=== PATIENT | female | born 1965 | race Hispanic/Latino ===

== ENCOUNTER 2018-02-03 14:35 | Outpatient (CLI) | payer BC | END 2018-02-03 14:36 | disposition home or self-care (01) | LOC: BICMAMMO 14:35 | PROVIDERS: ATTEND Nurse Practitioner Family | DX: Z12.31 Encounter for screening mammogram for malignant neoplasm of breast (principal) | CPT/HCPCS: 77063; 77067 ==

== ENCOUNTER 2018-09-18 15:48 | Outpatient (CLI) | payer BC ==
--- NOTE | 2018-09-18 16:46 | RAD ---
THORACIC SPINE 3 VIEWS: Date: 09/18/18 HISTORY: Back pain. FINDINGS: There are 12 thoracic-type vertebrae. Pedicles are intact. Vertebral body height and AP alignment are maintained. Very mild S-shaped curvature on the frontal view. Mild osteophytosis throughout the vert ebral bodies and facets. IMPRESSION: Very mild degenerative changes are apparent. No evidence of compression fracture. POS: [facility]
== END 2018-09-18 15:49 | disposition home or self-care (01) ==
LOC: BICRAD 15:48
PROVIDERS: ATTEND Nurse Practitioner Family
DX: M54.6 Pain in thoracic spine (principal); M47.814 Spondylosis without myelopathy or radiculopathy, thoracic region
CPT/HCPCS: 72072

== ENCOUNTER 2018-12-13 15:20 | Outpatient (CLI) | payer BC ==
--- NOTE | 2018-12-13 15:41 | ULT ---
LEFT CHEST WALL ULTRASOUND: HISTORY: Left chest wall mass just beneath the clavicle. TECHNIQUE: Multiplanar, son scale, and color Doppler images were obtained in a left chest wall ultrasound. Paige ges of the right were obtained for comparison. TECHNIQUE: Multiplanar, son scale and color Doppler images were obtained in a left chest wall ultrasound in the infraclavicular region. FINDINGS: In the infraclavicular region of the left chest, at the area of palpable abnormality, there is more p rominent subcutaneous fat when compared to the right. Normal underlying pectoralis major muscle is s een. The subcutaneous fat is not definitely encapsulated but could represent a lipoma or asymmetric nonencapsulated nonlipomatous subcutaneous fat. IMPRESSION: The area of palpable abnormality in the left chest wall represents fat. This could represent asymmet amelia fat or a focal lipoma. POS: [facility]
== END 2018-12-13 15:21 | disposition home or self-care (01) ==
LOC: BICULT 15:20
PROVIDERS: ATTEND Nurse Practitioner Family
DX: R22.2 Localized swelling, mass and lump, trunk (principal)

== ENCOUNTER 2019-02-21 07:12 | Outpatient (CLI) | payer BC ==
--- NOTE | 2019-02-21 08:20 | ULT ---
SONOGRAM ABDOMEN COMPLETE: HISTORY: Right abdominal pain. FINDINGS: Gallbladder has a normal appearance . No stones visible. Common duct is0.3 cm. Liver has a normal a ppearance without focal mass or intrahepatic biliary dilatation. No free fluid. The spleen, kidneys , and visualized portions of the abdominal aorta, IVC, and pancreas have a normal appearance. IMPRESSION: Normal abdominal sonogram. POS: [facility]
== END 2019-02-21 07:13 | disposition home or self-care (01) ==
LOC: BICULT 07:12
PROVIDERS: ATTEND Nurse Practitioner Family
DX: R10.31 Right lower quadrant pain (principal)
CPT/HCPCS: 76700

== ENCOUNTER 2019-02-22 11:19 | Outpatient (CLI) | payer BC ==
--- NOTE | 2019-02-22 13:22 | MMO ---
Bilateral MAMMO Bilat Screen [facility]. CLINICAL HISTORY: Patient is 53 years old and is seen for screening. The patient has no family history of breast cancer. The patient has no personal history of cancer. The patient has a history of left Excisional Biopsy in 2004 - benign. VIEWS: The views performed were: bilateral craniocaudal with tomosynthesis and bilateral mediolateral oblique with tomosynthesis. FILMS COMPARED: The present examination has been compared to prior imaging studies performed at [facility] on 06/23/2015, and at [facility] on 02/03/2018. MAMMOGRAM FINDINGS: The breasts are extremely dense, which may lower the sensitivity of mammography. Nodularity is stable. Benign calcifications are noted bilaterally. There are no suspicious masses, suspicious calcifications, or new areas of architectural distortion. IMPRESSION: THERE IS NO MAMMOGRAPHIC EVIDENCE OF MALIGNANCY. A ROUTINE FOLLOW-UP MAMMOGRAM IN 1 YEAR IS RECOMMENDED. THE RESULTS OF THIS EXAM WERE SENT TO THE PATIENT. ACR BI-RADS Category 2 - Benign finding MAMMOGRAPHY NOTE: 1. A negative mammogram report should not delay a biopsy if a dominant of clinically suspicious mass is present. 2. Approximately 10% to 15% of breast cancers are not detected by mammography. 3. Adenosis and dense breasts may obscure an underlying neoplasm.
== END 2019-02-22 11:20 | disposition home or self-care (01) ==
LOC: BICMAMMO 11:19
PROVIDERS: ATTEND Nurse Practitioner Family
DX: Z12.31 Encounter for screening mammogram for malignant neoplasm of breast (principal)
CPT/HCPCS: 77063; 77067

== ENCOUNTER 2019-06-11 14:12 | Outpatient (CLI) | payer BC ==
--- NOTE | 2019-06-11 15:09 | MMO ---
Left Breast MAMMO Unilat Diag [facility]. CLINICAL HISTORY: Patient is 53 years old and is seen for diagnostic exam,lump or thickening at 9 o'clock and pain in the left breast at 9 o'clock. The patient has no family history of breast cancer. The patient has no personal history of cancer. The patient has a history of left Excisional Biopsy in 2005 - benign. VIEWS: The views performed were: left craniocaudal with tomosynthesis; left mediolateral oblique with tomosynthesis; and left mediolateral with tomosynthesis. FILMS COMPARED: The present examination has been compared to prior imaging studies performed at [facility] on 06/23/2015, and at [facility] on 02/03/2018, 02/22/2019 and 06/11/2019. This study has been interpreted with the assistance of computer-aided detection. MAMMOGRAM FINDINGS: The breast is extremely dense, which may lower the sensitivity of mammography. Masses in left breast are again seen. Please see US report. IMPRESSION: FINDING IN THE LEFT BREAST REQUIRES ADDITIONAL EVALUATION. AN ULTRASOUND EXAM IS RECOMMENDED. THE RESULTS OF THIS EXAM WERE SENT TO THE PATIENT. ACR BI-RADS Category 0 - Incomplete: Need additional imaging evaluation. [facility] will notify the patient of the need for additional imaging services. MAMMOGRAPHY NOTE: 1. A negative mammogram report should not delay a biopsy if a dominant of clinically suspicious mass is present. 2. Approximately 10% to 15% of breast cancers are not detected by mammography. 3. Adenosis and dense breasts may obscure an underlying neoplasm. Reported by: KOFI GRIFFIN MD Electonically Signed: [id number]
--- NOTE | 2019-06-11 16:20 | ULT ---
LEFT BREAST ULTRASOUND: HISTORY: Palpable mass. FINDINGS: Sonographic evaluation in the region of palpable concern at the 3 o'clock position of the left breast demonstrates multiple cysts, the largest measures 4 cm. In the region of palpable concern, at the 9 o'clock position of the left breast there are two cystic masses adjacent to one another with internal mobile debris. Together these measure 2.8 x 1.9 x 2.5 cm . IMPRESSION: BI-RADS category 3 - probably benign findings. Three month follow-up ultrasound of the left breast mass(es) at the 9 o'clock position is recommended . POS: [facility]
== END 2019-06-11 14:13 | disposition home or self-care (01) ==
LOC: BICMAMMO 14:12
PROVIDERS: ATTEND Nurse Practitioner Family
DX: N63.24 Unspecified lump in the left breast, lower inner quadrant (principal)
CPT/HCPCS: G0279

== ENCOUNTER 2020-02-07 13:54 | Outpatient (CLI) | payer BC ==
--- NOTE | 2020-02-07 14:49 | MMO ---
Bilateral MAMMO Bilat Diag [facility]. CLINICAL HISTORY: Patient is 54 years old and is seen for diagnostic exam. The patient has no family history of breast cancer. The patient has no personal history of cancer. The patient has a history of bilateral cyst aspiration in 2019 - benign and left Excisional Biopsy in 2005 - benign. VIEWS: The views performed were: bilateral craniocaudal with tomosynthesis; bilateral mediolateral oblique with tomosynthesis; and bilateral mediolateral with tomosynthesis. FILMS COMPARED: The present examination has been compared to prior imaging studies performed at [facility] on 02/22/2019, 06/11/2019 and 02/07/2020. This study has been interpreted with the assistance of computer-aided detection. MAMMOGRAM FINDINGS: The breasts are extremely dense, which may lower the sensitivity of mammography. Nodularity is conistent with cysts.. There are no suspicious masses, suspicious calcifications, or new areas of architectural distortion. IMPRESSION: THERE IS NO MAMMOGRAPHIC EVIDENCE OF MALIGNANCY. A ROUTINE FOLLOW-UP MAMMOGRAM IN 1 YEAR IS RECOMMENDED. THE RESULTS OF THIS EXAM WERE SENT TO THE PATIENT. ACR BI-RADS Category 2 - Benign finding MAMMOGRAPHY NOTE: 1. A negative mammogram report should not delay a biopsy if a dominant of clinically suspicious mass is present. 2. Approximately 10% to 15% of breast cancers are not detected by mammography. 3. Adenosis and dense breasts may obscure an underlying neoplasm. Reported by: KOFI GRIFFIN MD Electonically Signed: [id number]
--- NOTE | 2020-02-07 15:17 | ULT ---
LEFT BREAST ULTRASOUND: 02/07/20 HISTORY: Follow-up ultrasound left breast masses. FINDINGS: Correlation is made with the ultrasound obtained 03/24/19 and mammogram of 06/11/19 and today. Sonographic evaluation of the 9 o'clock position of the left breast demonstrates a 7 x 5 x 6 mm cyst with some internal debris much smaller than that seen on the exam of 06/11/19. IMPRESSION: BIRADS 2: Benign Finding(s) Routine annual screening mammography (for women over age 40).
== END 2020-02-07 13:55 | disposition home or self-care (01) ==
LOC: BICMAMMO 13:54
PROVIDERS: ATTEND Nurse Practitioner Family
DX: N60.02 Solitary cyst of left breast (principal)
CPT/HCPCS: 77066; G0279

== ENCOUNTER 2020-11-05 13:52 | Outpatient (CLI) | payer BC | END 2020-11-05 13:53 | disposition home or self-care (01) | LOC: BICRAD 13:52 | PROVIDERS: ATTEND Nurse Practitioner Family | DX: M54.42 Lumbago with sciatica, left side (principal); M47.816 Spondylosis without myelopathy or radiculopathy, lumbar region | CPT/HCPCS: 72100 ==

== ENCOUNTER 2021-02-13 09:38 | Outpatient (CLI) | payer BC | END 2021-02-13 09:39 | disposition home or self-care (01) | LOC: BICMAMMO 09:38 | PROVIDERS: ATTEND Nurse Practitioner Family | DX: Z12.31 Encounter for screening mammogram for malignant neoplasm of breast (principal) | CPT/HCPCS: 77063; 77067 ==

== ENCOUNTER 2022-02-15 08:43 | Outpatient (CLI) | payer BC | END 2022-02-15 08:44 | disposition home or self-care (01) | LOC: BICMAMMO 08:43 | PROVIDERS: ATTEND Nurse Practitioner Family | DX: Z12.31 Encounter for screening mammogram for malignant neoplasm of breast (principal) | CPT/HCPCS: 77063; 77067 ==

== ENCOUNTER 2022-09-10 14:43 | Outpatient (CLI) | payer BC | END 2022-09-10 14:44 | disposition home or self-care (01) | LOC: BICULT 14:43 | PROVIDERS: ATTEND Nurse Practitioner Family | DX: R22.2 Localized swelling, mass and lump, trunk (principal) ==

== ENCOUNTER 2023-11-16 11:28 | Outpatient (CLI) | payer BC | END 2023-11-16 11:29 | disposition home or self-care (01) | LOC: BICMAMMO 11:28 | PROVIDERS: ATTEND Nurse Practitioner Family | DX: Z12.31 Encounter for screening mammogram for malignant neoplasm of breast (principal); N63.25 Unspecified lump in the left breast, overlapping quadrants; N63.10 Unspecified lump in the right breast, unspecified quadrant; Z91.89 Other specified personal risk factors, not elsewhere classified | CPT/HCPCS: 77063; 77067 ==

== ENCOUNTER 2024-01-10 17:18 | Emergency (ER) | payer BC ==
[2024-01-10 18:45] LABS: #Basophils 0.04 10x3/uL (0.0-0.2); %Basophils 0.4 % (0.0-1.0); %Eosinophils 1.9 % (0.0-10.0); %Lymphocytes 25.4 % (21.0-51.0); %Monocytes 6.3 % (0.0-10.0); %Neutrophils 65.7 % (42.0-75.0); Hematocrit 36.1 % (36.0-47.0); Hemoglobin 12.9 g/dL (12.0-16.0); Mean Corpuscular HGB CONC 35.7 g/dL (32.0-36.0); Mean Corpuscular Hemoglobin 29.3 pg (27.0-31.0); Mean Platelet Volume 9.4 fL (7.4-10.4); Platelet Count 469 10x3/uL (130-400); RBC Distribution Width 14.7 % (11.5-14.5)
[2024-01-10 19:35] LABS: Globulin 3.4 g/dL (2.4-3.5)
[2024-01-10 19:39] LABS: ALT (SGPT) 35 U/L (8-55); AST (SGOT) 24 U/L (5-34); Alkaline Phosphatase 118 U/L (40-110); Anion Gap 16 mmol/L (10-20); BUN (Urea Nitrogen) 13 mg/dL (9.8-20.1); Bilirubin, Total 1.2 mg/dL (0.2-1.2); Calc. Creatinine Clearance 0 mL/min (70-130); Calcium 9.7 mg/dL (7.8-10.44); Carbon Dioxide 23 mmol/L (22-29); Chloride 103 mmol/L (98-107); Estimated GFR 92; Glucose 171 mg/dL (70-105); Potassium 3.7 mmol/L (3.5-5.1); Protein, Total 7.4 g/dL (6.0-8.3); Sodium 138 mmol/L (136-145)
== END 2024-01-10 20:47 | disposition home or self-care (01) ==
LOC: ERS 17:18
DX: R20.2 Paresthesia of skin (principal)
CPT/HCPCS: 36415; 70450; 80053; 85025

== ENCOUNTER 2024-08-20 16:03 | Outpatient (CLI) | payer BC | END 2024-08-20 16:04 | disposition home or self-care (01) | LOC: BICRAD 16:03 | PROVIDERS: ATTEND Internal Medicine Rheumatology | DX: R76.12 Nonspecific reaction to cell mediated immunity measurement of gamma interferon antigen response without active tuberculosis (principal); Z79.899 Other long term (current) drug therapy | CPT/HCPCS: 71046 ==